=== PATIENT | male | born 1955 | race Caucasian/White ===

== ENCOUNTER → 2016-10-18 | Outpatient (CLI) | payer OTHER ==
[~2016-10-18] MED LIST: ALBU1AER9 INH; ASPI81TA28 PO; BECL0.072 INH; COLE3.75 PO; GLIM1TAB2 PO; IRBE-37 PO; METF1TAB53 PO; MONT1TAB3 PO; OMEP40CA PO; PRED1SUS3 OPR
--- NOTE | 2016-10-18 18:11 | DIAGNOSTIC IMAGING REPORT ---
CHEST 2 VIEWS ROUTINE CLINICAL HISTORY: R05 Cough COMPARISON STUDY: No previous studies for comparison. FINDINGS: The bones soft tissues and hemidiaphragms are normal. The cardiomediastinal silhouette is normal. The lungs are clear. The pulmonary vasculature is normal. IMPRESSION: Negative chest. Electronically signed by: Kenyon Salinas M.D. 10/18/2016 6:09 PM Dictated Date/Time: 10/18/2016 6:09 PM
== END | disposition home or self-care (01) ==
LOC: C.RAD 17:49
PROVIDERS: ATTEND Family Medicine
DX: R05 Cough (principal)

== ENCOUNTER → 2016-11-04 | Outpatient (CLI) | payer OTHER ==
[2016-11-08 03:35] LABS: BORDETELLA PERTUSSIS SOURCE Nasal Swab
== END | disposition home or self-care (01) ==
LOC: C.LABMFLN 11:58
PROVIDERS: ATTEND Family Medicine
DX: R05 Cough (principal)

== ENCOUNTER → 2016-11-10 | Outpatient (CLI) | payer OTHER ==
[2016-11-10 11:00] LABS: ESTIMATED AVERAGE GLUCOSE 163 mg/dl; HA1C FLAG Normal (Normal)
[2016-11-10 11:25] LABS: ALB/GLOB RATIO 1.1 (0.9-2); AST/SGOT 27 U/L (15-37); BLOOD UREA NITROGEN 14 mg/dl (7-18); BUN/CREATININE RATIO 12.9 (10-20); CALCIUM 9.1 mg/dl (8.5-10.1); CARBON DIOXIDE 30 mmol/L (21-32); CHLORIDE 106 mmol/L (98-107); CHOLESTEROL 173 mg/dl (0-200); CHOLESTEROL/HDL RATIO 3.9; GLUCOSE 136 mg/dl (70-99); HDL CHOLESTEROL 44 mg/dl; POTASSIUM 4.3 mmol/L (3.5-5.1); SODIUM 139 mmol/L (136-145)
[2016-11-10 11:32] LABS: ALKALINE PHOSPHATASE 65 U/L (45-117); ALT/SGPT 49 U/L (12-78); LDL CHOLESTEROL CALCULATED 106 mg/dl; TRIGLYCERIDES 115 mg/dl (0-150); VERY LOW DENSITY LIPOPROT CALC 23 mg/dl
== END | disposition home or self-care (01) ==
LOC: C.LAB 09:28
PROVIDERS: ATTEND Family Medicine
DX: E11.9 Type 2 diabetes mellitus without complications (principal); I10 Essential (primary) hypertension; E78.00 Pure hypercholesterolemia, unspecified

== ENCOUNTER → 2016-11-15 | Outpatient (CLI) | payer OTHER ==
[~2016-11-15] MED LIST changes: +OPTIRAY 320 IV PRN
--- NOTE | 2016-11-15 11:29 | DIAGNOSTIC IMAGING REPORT ---
CT OF THE CHEST WITHOUT IV CONTRAST CLINICAL HISTORY: CHRONIC COUGH PULMONARY NODULE COMPARISON STUDY: 11/23/2015 CT DOSE: 754.91 mGy.cm TECHNIQUE: CT of the thorax was performed from the thoracic inlet to the lung bases. Images are reviewed in the axial, sagittal, and coronal planes. IV contrast was not administered for this examination. FINDINGS: Thyroid: Imaged portions of the thyroid gland are normal in appearance. Thoracic aorta: The thoracic aorta is normal in course and caliber, noting standard 3 vessel arch anatomy. Heart: The heart is normal in size and configuration, without pericardial effusion. Lungs and pleural spaces: There is a 5 mm calcified right upper lobe granuloma. There is stable 4 mm right middle lobe pulmonary nodule. The previously identified 5 mm groundglass right upper lobe pulmonary nodule is no longer visualized. There is a 2.5 mm right upper lobe pulmonary nodule, not previously visualized. There are stable subcentimeter left lower lobe perifissural nodules. There is a stable 3 mm left lower lobe pulmonary nodule. There is no acute parenchymal consolidation. There are no pleural effusions. Mediastinum: There are calcified subcarinal lymph nodes. Beena: There are calcified right hilar lymph nodes. Axilla: Clear. Upper abdomen: There is mild hepatic steatosis. Skeletal structures: There are no lytic or blastic osseous lesions. IMPRESSION: 1. No evidence of acute parenchymal consolidation 2. Evidence of prior granulomatous disease 3. Scattered bilateral subcentimeter solid pulmonary nodules. These remain essentially stable. Further follow-up is probably not indicated per current guidelines. 4. No evidence of pathologic adenopathy Electronically signed by: Keyshawn Rock M.D. 11/15/2016 11:28 AM Dictated Date/Time: 11/15/2016 11:19 AM
--- NOTE | 2016-11-15 11:35 | DIAGNOSTIC IMAGING REPORT ---
CT SINUSES-MAXILLOFACIAL W/O CLINICAL HISTORY: Chronic cough. Following nodule. COMPARISON STUDY: None. TECHNIQUE: CT scan of the paranasal sinuses was performed in the axial plane. Coronal and sagittal reconstructed images were reviewed. CT DOSE: 662.69 mGy.cm FINDINGS: There is very minimal left maxilla sinus mucosal thickening. The mastoids appear symmetrically aerated. The middle ear cavities appear symmetrically aerated. Sphenoid sinus reveals mild mucosal thickening. The ethmoid air cells are clear. The frontal sinuses are clear. There is no hydrocephalus. The ostiomeatal units are patent bilaterally. There is pneumatization of the right middle turbinate. The frontoethmoidal recesses appear patent. IMPRESSION: 1. Mild mucosal disease within the sphenoid and left maxilla sinus 2. No evidence of acute sinusitis 3. The ostiomeatal units are patent bilaterally Electronically signed by: Keyshawn Rock M.D. 11/15/2016 11:34 AM Dictated Date/Time: 11/15/2016 11:31 AM
== END | disposition home or self-care (01) ==
LOC: C.CTS 09:55
PROVIDERS: ATTEND Family Medicine
DX: R05 Cough (principal); R91.8 Other nonspecific abnormal finding of lung field; J32.8 Other chronic sinusitis

== ENCOUNTER → 2016-11-15 | Outpatient (CLI) | payer OTHER ==
[~2016-11-15] MED LIST changes: -OPTIRAY 320 IV PRN
--- NOTE | 2016-11-17 13:30 | PULMONARY FUNCTION TEST ---
Spirometry is within the limits of normal. Mid flow rates were low normal at 70% of predicted. Cannot exclude small airways dysfunction. Repeat study done following bronchodilators showed a 14% improvement in mid flow rates and otherwise no change. Flow volume loops on expiration were normal. The patient did not optimally perform the inspiratory portion of the flow volume loop.
== END | disposition home or self-care (01) ==
LOC: C.RC 09:54
PROVIDERS: ATTEND Specialist
DX: J45.998 Other asthma (principal); R91.8 Other nonspecific abnormal finding of lung field

== ENCOUNTER → 2016-11-22 | Outpatient (CLI) | payer OTHER | END | disposition home or self-care (01) | LOC: C.LABMFLN 09:01 | PROVIDERS: ATTEND Family Medicine | DX: E11.9 Type 2 diabetes mellitus without complications (principal); I10 Essential (primary) hypertension; E78.00 Pure hypercholesterolemia, unspecified ==

== ENCOUNTER → 2017-03-10 | Outpatient (CLI) | payer OTHER ==
[2017-03-10 09:58] LABS: ESTIMATED AVERAGE GLUCOSE 154 mg/dl; HA1C FLAG Normal (Normal)
[2017-03-10 10:18] LABS: ALT/SGPT 54 U/L (12-78); AST/SGOT 27 U/L (15-37); BLOOD UREA NITROGEN 14 mg/dl (7-18); BUN/CREATININE RATIO 14.2 (10-20); CALCIUM 8.8 mg/dl (8.5-10.1); CARBON DIOXIDE 29 mmol/L (21-32); CHLORIDE 106 mmol/L (98-107); GLUCOSE 131 mg/dl (70-99); HDL CHOLESTEROL 44 mg/dl; POTASSIUM 4.5 mmol/L (3.5-5.1); SODIUM 140 mmol/L (136-145)
[2017-03-10 10:20] LABS: CHOLESTEROL 166 mg/dl (0-200); CHOLESTEROL/HDL RATIO 3.8; LDL CHOLESTEROL CALCULATED 100 mg/dl; TRIGLYCERIDES 109 mg/dl (0-150); VERY LOW DENSITY LIPOPROT CALC 22 mg/dl
[2017-03-10 12:09] LABS: RATIO 5.9 mcg/mg (0-30.0)
== END | disposition home or self-care (01) ==
LOC: C.LAB 08:38
PROVIDERS: ATTEND Family Medicine
DX: E11.9 Type 2 diabetes mellitus without complications (principal); E78.00 Pure hypercholesterolemia, unspecified; R05 Cough

== ENCOUNTER → 2017-06-22 | Outpatient (CLI) | payer OTHER ==
[2017-06-22 10:26] LABS: FREE PSA 0.6 ng/ml; PROSTATE SPECIFIC ANTIGEN 3.76 ng/ml (0.000-4.000)
== END | disposition home or self-care (01) ==
LOC: C.LAB 08:22
PROVIDERS: ATTEND Family Medicine
DX: R97.20 Elevated prostate specific antigen [PSA] (principal)

== ENCOUNTER → 2017-07-14 | Outpatient (CLI) | payer OTHER ==
[2017-07-14 13:03] LABS: HEMOGLOBIN A1C 7.3 % (4.5-5.6)
[2017-07-14 13:31] LABS: ALBUMIN 3.8 gm/dl (3.4-5.0); ALT/SGPT 51 U/L (12-78); AST/SGOT 26 U/L (15-37); BLOOD UREA NITROGEN 16 mg/dl (7-18); CALCIUM 8.7 mg/dl (8.5-10.1); CARBON DIOXIDE 28 mmol/L (21-32); CREATININE 1.05 mg/dl (0.60-1.40); GLUCOSE 161 mg/dl (70-99); POTASSIUM 3.9 mmol/L (3.5-5.1); SODIUM 136 mmol/L (136-145)
[2017-07-14 13:33] LABS: ALKALINE PHOSPHATASE 64 U/L (45-117); CHOLESTEROL 176 mg/dl (0-200); LDL CHOLESTEROL CALCULATED 103 mg/dl; TOTAL PROTEIN 7.4 gm/dl (6.4-8.2)
== END | disposition home or self-care (01) ==
LOC: C.LABMFLN 08:35
PROVIDERS: ATTEND Family Medicine
DX: E11.9 Type 2 diabetes mellitus without complications (principal); I10 Essential (primary) hypertension; E78.00 Pure hypercholesterolemia, unspecified

== ENCOUNTER → 2017-11-10 | Outpatient (CLI) | payer OTHER ==
[2017-11-10 10:00] LABS: HEMOGLOBIN A1C 7.1 % (4.5-5.6)
[2017-11-10 10:05] LABS: ALBUMIN 3.9 gm/dl (3.4-5.0); ALT/SGPT 50 U/L (12-78); AST/SGOT 30 U/L (15-37); BLOOD UREA NITROGEN 15 mg/dl (7-18); CALCIUM 8.7 mg/dl (8.5-10.1); CARBON DIOXIDE 28 mmol/L (21-32); CHOLESTEROL 165 mg/dl (0-200); CREATININE 1.04 mg/dl (0.60-1.40); GLUCOSE 123 mg/dl (70-99); POTASSIUM 4.2 mmol/L (3.5-5.1); SODIUM 139 mmol/L (136-145)
[2017-11-10 10:07] LABS: ALKALINE PHOSPHATASE 65 U/L (45-117); LDL CHOLESTEROL CALCULATED 96 mg/dl; TOTAL PROTEIN 7.4 gm/dl (6.4-8.2)
[2017-11-10 10:18] LABS: CREATININE RANDOM URINE 70.7 mg/dl
== END | disposition home or self-care (01) ==
LOC: C.LAB 08:24
PROVIDERS: ATTEND Family Medicine
DX: E11.9 Type 2 diabetes mellitus without complications (principal); I10 Essential (primary) hypertension; E78.00 Pure hypercholesterolemia, unspecified

== ENCOUNTER → 2017-11-30 | Outpatient (CLI) | payer OTHER ==
--- NOTE | 2017-11-30 12:57 | DIAGNOSTIC IMAGING REPORT ---
(CHEST) THORAX WITHOUT CLINICAL HISTORY: 62 years-old Male presenting with ASTHMA, granulomatous disease, asymptomatic currently. TECHNIQUE: Multidetector CT imaging of the chest was performed without the use of intravenous contrast. IV contrast: None. A dose lowering technique was used consistent with the principles of ALARA (as low as reasonably achievable). COMPARISON: 11/15/2016. CT DOSE (mGy.cm): The estimated cumulative dose is 1086.32 mGy.cm. FINDINGS: Charge Histotechnologist topogram: Unremarkable. On soft tissue windows, normal thyroid and thoracic inlet. Calcified mediastinal and right hilar lymph nodes again noted. No axillary, supraclavicular, or mediastinal lymphadenopathy. Evaluation of the temi limited without intravenous contrast. Atherosclerosis of the aorta. Normal heart size. No pericardial or pleural effusion. Hepatic steatosis. Few punctate calcifications in the liver and spleen likely relate to prior granulomatous infection. On lung windows, calcified granulomata noted in the right upper lobe and left lower lobe. No other infiltrate or nodule. Airways patent. On bone windows, degenerative changes of the spine. IMPRESSION: 1. No acute intrathoracic pathology. 2. Evidence of prior granulomatous infection. 3. Hepatic steatosis. Electronically signed by: Devin Romero M.D. 11/30/2017 12:55 PM Dictated Date/Time: 11/30/2017 12:51 PM
--- NOTE | 2017-12-01 07:42 | PULMONARY FUNCTION TEST ---
CLINICAL DATA: A 62-year-old male with a height of 70 inches and a weight of [address] Pabon for evaluation of asthma. Spirometry pre and post bronchodilator were performed. FINDINGS: Pre-bronchodilator spirometry demonstrates mild obstructive small airways disease. FVC was 101% of predicted. FEV1 was 93% of predicted. [id number] was 63% of predicted. There was improvement after inhaled bronchodilator. FVC remained the same. FEV1 improved 7% to 99% of predicted. [id number] improved 49% to 94% of predicted. IMPRESSION: Mild obstructive small airways disease with significant improvement in small airway flow after inhaled bronchodilators consistent with asthma. MTDD
== END | disposition home or self-care (01) ==
LOC: C.CTS 12:26
PROVIDERS: ATTEND Specialist
DX: J45.998 Other asthma (principal); D71 Functional disorders of polymorphonuclear neutrophils; K76.0 Fatty (change of) liver, not elsewhere classified